=== PATIENT | male | born 1995 | race Native Hawaiian/Other Pacific Islander ===

== ENCOUNTER 2017-03-18 21:40 | Emergency (ER) | payer SELFPAY ==
[~2017-03-18] VITALS: Ht 147.3 cm; Wt 49.9 kg
[2017-03-18 21:43] VITALS: BP 115/78
--- NOTE | 2017-03-18 21:54 | NUR ---
PT SONY NOLANS. TAKEN TO BED 4
--- NOTE | 2017-03-18 21:55 | NUR ---
PATIENT BIBA C/O NEAR SYNCOPAL EPISODE FOR 15 SECONDS, WITH S/P SMASHED RT MIDDLE FINGER , AND ABRASION ON HIS RT SIDE FACE. HE WAS HAND RUG [employer] FROM [employer]. . DENIES N/V/D; SKIN IS PINK/WARM/DRY; AAOX4 WITH EVEN AND STEADY GAIT; LUNGS CLEAR BL; HR EVEN AND REGULAR; PT DENIES ANY FEVER, CP, SOB, OR COUGH AT THIS TIME; PATIENT STATES PAIN OF 2/10 AT THIS TIME; VSS; PATIENT POSITIONED FOR COMFORT; HOB ELEVATED; BEDRAILS UP X2; BED DOWN. ER MD MADE AWARE OF PT STATUS.
--- NOTE | 2017-03-18 22:11 | NUR ---
REPORT GIVEN TO LASHAE GALLARDO
--- NOTE | 2017-03-18 22:20 | NUR ---
Dr. Gaona evaluating patient at bedside.
--- NOTE | 2017-03-18 22:55 | NUR ---
DR. MORTON AT BEDSIDE FOR WOUND CARE.
--- NOTE | 2017-03-18 23:11 | NUR ---
IV removed, catheter intact and site benign. Applied folded 4x4 gauze and tape to stop bleeding.
[2017-03-18 23:38] VITALS: BP 130/77
--- NOTE | 2017-03-18 23:38 | NUR ---
Patient discharged with v/s stable. Written and verbal after care instructions given and explained. Patient verbalized understanding. Ambulatory with steady gait. All questions addressed prior to discharge. Advised to follow up with PMD. Patient waiting in lobby for family. Chart checked and completed. The patient's care was reviewed and supervised by Angelic Anglin RN.
== END 2017-03-18 23:38 | disposition home or self-care (01) ==
LOC: MED 21:40
DX: S01.21XA Laceration without foreign body of nose, initial encounter (principal); W18.00XA Striking against unspecified object with subsequent fall, initial encounter; Y93.89 Activity, other specified; Y92.89 Other specified places as the place of occurrence of the external cause; Y99.8 Other external cause status